=== PATIENT | male | born 1970 | race Caucasian/White ===

== ENCOUNTER 2022-11-04 08:33 | Day surgery (SDC) | payer BC ==
[~2022-11-04] VITALS: Ht 177.8 cm; Wt 79.0 kg
[2022-11-04] VITALS (11 sets, daily range): BP systolic 113–148; BP diastolic 60–78
[~2022-11-04 08:33] MED LIST: LIDOcaine 1% W/epiNEPHrine 1:100,000 20ml vial ONE; TEST200V33 IM; cocaine 4% topical solution 4ml bottle ONE; epiNEPHrine 1 mg/ml 30ml MDV ONE; famotidine 20mg tablet PO ONE; methylPREDNISolone acetate 80mg/ml inj**IM only ONE; mupirocin 2% ointment 22GM ONE; oxymetazoline 15 ML nasal spray NS ONE; ringers solution, lacted 1,000 ML IV SCH; tranexamic acid 100mg/ml inj. ONE; tranexamic acid inj. 1,000 MG in normal saline IV soln 100ML IV ONE
[2022-11-04] MEDS ORDERED: labetalol 20mg/4ml (5mg/ml) syringe IV PRN (08:45)
[2022-11-04] MEDS ORDERED: fentaNYL/PF 50MCG/1 ML 2ML syringe IV PRN (08:45)
[2022-11-04] MEDS ORDERED: ringers solution, lacted 1,000 ML IV SCH (08:45)
[2022-11-04] MEDS ORDERED: morphine 2 MG/ML inj. syringe IV PRN (08:45)
[2022-11-04] MEDS ORDERED: ondansetron/PF 4mg/2ml inj IV PRN (08:45)
[2022-11-04] MEDS ORDERED: hydrALAZINE 20mg/ml inj. IV PRN (08:45)
[2022-11-04] MEDS ORDERED: sevoflurane 250ml liquid IH ONE (10:36)
[2022-11-04] MEDS ORDERED: midazolam 1 mg/ML 2ml injection ONE (10:42)
[2022-11-04] MEDS ORDERED: fentaNYL/PF 50MCG/1 ML 2ML syringe ONE (10:42)
[2022-11-04] MEDS ORDERED: propofol inj 20 ML IV ONE (10:55)
[2022-11-04] MEDS ORDERED: dexamethasone sod phosphate 4mg/ml inj. ONE (10:55)
[2022-11-04] MEDS ORDERED: ondansetron/PF 4mg/2ml inj ONE (10:55)
[2022-11-04] MEDS ORDERED: LIDOcaine 2% (20mg/ml) 5ml vial ONE (10:55)
[2022-11-04] MEDS ORDERED: hydrALAZINE 20mg/ml inj. IV ONE (11:04)
--- NOTE | 2022-11-04 12:23 | NUR ---
Received from OR via [facility] , accompanied by Anesthesiologist DR. FRASER and report given by Anesthesiolgist. PT IS ALERT AND RESPONSIVE. REPORTS PAIN 7/10; MEDICATED AND WILL CONTINUE TO MONITOR. O2 AT 6 LP, PER MASK. 20 GUAGE IV TO R FOREARM W/ LR AT APPX. 100 ML/HR. COTTONOIDS IN PLACE BILATERALLY.SCANT BLOODY DRAINAGE FROM R NOSTRIL.
[2022-11-04] MEDS: morphine 4 MG/ML inj SYRINge IV PRN ×2 (12:47→12:55)
[2022-11-04] MEDS: fentaNYL/PF 50MCG/1 ML 2ML syringe IV PRN ×2 (13:21→13:36)
[2022-11-04] MEDS ORDERED: salt irrigation nasal spray 45 ML SPRAY NS SCH (13:44)
[2022-11-04] MEDS ORDERED: mupirocin 2% nasal ointment 1gm UD NS SCH ×2 (13:45→14:00)
--- NOTE | 2022-11-04 14:33 | NUR ---
PT IS ALERT, BREATHING EASLILY ON RA. COTTONOIDS REMOVED AT 1335 - MODERATE SANGUINOUS DRAINAGE INITIALLY, BUT DRESSING D&I AT DC. MEDICATED REPEATEDLY PER ORDERS FOR PAIN W/FAIR RELIEF. REFUSED ADDITONAL INTERVENTION. URINATED A "GOOD AMOUNT". IV DC'D AT TIME OF DC. DC INSTRUCTIONS PER [employer] HENRIQUEZ RN.
[2022-11-04] MEDS ORDERED: oxymetazoline 15 ML nasal spray NS SCH (20:00)
== END 2022-11-04 14:33 | disposition home or self-care (01) ==
LOC: PAS 08:33
PROVIDERS: ATTEND Otolaryngology
DX: J34.2 Deviated nasal septum (principal); J34.3 Hypertrophy of nasal turbinates; J34.89 Other specified disorders of nose and nasal sinuses; J32.9 Chronic sinusitis, unspecified; Z20.822 Contact with and (suspected) exposure to COVID-19; Z87.891 Personal history of nicotine dependence; Z98.890 Other specified postprocedural states; Z79.899 Other long term (current) drug therapy
CPT/HCPCS: 30140; 30520; 31240; 82948; 87811; 93005; A6402; J0171; J0360; J2250; J2270; J2405; J2704; J3010; J3490; J7030; J7050; J7120; Z7506; Z7508; Z7512; A4618; A6449; A7000; J1040; J1100